=== PATIENT | male | born 2000 | race Caucasian/White ===

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

== ENCOUNTER 2025-10-27 08:30 | Emergency (ER) | payer SELFPAY ==
[2025-10-27] MEDS: Acetaminophen/HYDROcodone 325-5 MG Tab PO ONE (08:46)
== END 2025-10-27 09:13 | disposition home or self-care (01) ==
LOC: MW.ED 08:30
DX: S62.350A Nondisplaced fracture of shaft of second metacarpal bone, right hand, initial encounter for closed fracture (principal); W22.09XA Striking against other stationary object, initial encounter
CPT/HCPCS: 29125; 73130; 99283; A9270; 99284